=== PATIENT | female | born 1990 | race Caucasian/White ===

== ENCOUNTER 2016-08-21 11:41 | Inpatient (IN) | payer OTHER ==
[2016-08-21] MEDS ORDERED: SUBLIMAZE 100 MCG/2 ML IV PRN (12:09)
[2016-08-21] MEDS ORDERED: Zofran 4 MG/2 ML VIAL IV PRN (12:10)
[2016-08-21] MEDS ORDERED: Sodium Chloride 0.9% 1000 ML 1,000 ML IV SCH (12:15)
[2016-08-21] MEDS: Sodium Chloride 0.9% 1000 ML 1,000 ML IV SCH ×2 (13:26→21:53)
[2016-08-21 16:33] LABS: ALBUMIN 3.1 g/dL (3.4-5.0); ALKALINE PHOSPHATASE 113 U/L (46-116); BILIRUBIN,TOTAL 0.2 mg/dL (0.2-1.0); BLOOD UREA NITROGEN 11 mg/dL (9-20); Glucose 97 MG/DL (70-110)
[2016-08-21 16:53] LABS: ANION GAP 11.5 MEQ/L (5-15); CHLORIDE 108 mEq/L (98-107); Carbon Dioxide 26.4 mEq/L (21-32); Potassium 4.1 mEq/L (3.5-5.1); SGPT/ALT 320 U/L (12-78); SODIUM 142 mEq/L (136-145)
[2016-08-21 19:43] LABS: SGOT/AST 1307 U/L (15-37)
[2016-08-21] MEDS: Protonix 40MG Tablet PO SCH (21:53)
[2016-08-21] MEDS ORDERED: NON-FORMULARY ITEM (Omeprazole [Prilosec] 20 MG) PO SCH (22:00)
[2016-08-22] MEDS: Sodium Chloride 0.9% 1000 ML 1,000 ML IV SCH ×4 (04:24→23:58)
[2016-08-22 05:52] LABS: BASOPHIL % 0.4 % (0.0-0.4); Eosinophil % 10.6 % (0.00-5.0); Granulocytes % 50.8 % (36.0-66.0); Lymphocytes % 30.9 % (24.0-44.0); Mean Cell Volume 83.1 fl (78-100); Monocytes % 7.3 % (0.0-12.0); Platelet Count 247 K/mm3 (150-450); Red Blood Count 4.03 M/mm3 (4.1-5.4); Red Cell Distribution Width 14.9 % (11.5-14.0); White Blood Count 7.2 K/mm3 (4.0-10.5)
[2016-08-22 06:19] LABS: ALKALINE PHOSPHATASE 112 U/L (46-116); BILIRUBIN,TOTAL 0.3 mg/dL (0.2-1.0); BLOOD UREA NITROGEN 9 mg/dL (9-20); CHLORIDE 107 mEq/L (98-107); Carbon Dioxide 25.8 mEq/L (21-32); Glucose 89 MG/DL (70-110); Potassium 4.2 mEq/L (3.5-5.1); SGPT/ALT 355 U/L (12-78); SODIUM 140 mEq/L (136-145); Total Protein 6.1 gm/dL (6.4-8.2)
[2016-08-22 06:39] LABS: SGOT/AST 1266 U/L (15-37)
--- NOTE | 2016-08-22 07:04 | PCM.HP ---
History of Present Illness - Chief Complaint Chief Complaint: rhabolomyolysis History of Present Illness: is a 25 year old female who did a vigorous hour long spinning class on Friday (4 days ago), yesterday presented to [facility] [place] with brown urine, severe muscle pain in marcelino leg. her cpk was over 40,000 so she was admitted for hydration. her urine has cleared since admission, she is able to ambulate, otherwise she is doing well. - Review of Systems Constitutional: No Fever, No Chills Respiratory: No Cough, No Short Of Breath Cardiac: No Chest Pain, No Edema, No Syncope Abdominal/Gastrointestinal: No Abdominal Pain, No Nausea, No Vomiting, No Diarrhea Musculoskeletal: Myalgias All Other Systems: Reviewed and Negative Medications & Allergies Home Medications: Home Medication List Naproxen 375 mg [Naprosyn 375 mg] 375 mg PO Q6H PRN PRN 08/21/16 [History Confirmed 08/21/16] Omeprazole [Prilosec] 20 mg PO HS 08/21/16 [History Confirmed 08/21/16] Pnv No.122/Iron/Folic Acid [ Multi Tablet] 1 each PO DAILY 08/21/16 [ History Confirmed 08/21/16] Allergies/Adverse Reactions: Allergies Allergy/AdvReac Type Severity Reaction Status Date / Time No Known Drug Allergies Allergy Unverified 08/21/16 12:08 - Past Medical History Past Medical History: No Neurological History: No Pertinent History ENT History: No Pertinent History Cardiac History: Other Respiratory History: No Pertinent History Endocrine Medical History: No Pertinent History Musculoskelatal History: No Pertinent History GI Medical History: No Pertinent History Pyscho-Social History: No Pertinent History Reproductive Disorders: No Pertinent History Comment: cardio neurogenic - Female History Hx Last Menstrual Period: july 2016 Are you now?: No - Past Surgical History Past Surgical History: Yes Neuro Surgical History: No Pertinent History Cardiac History: No Pertinent History Respiratory Surgery: No Pertinent History GI Surgical History: No Pertinent History Genitourinary Surgical Hx: No Pertinent History Musculskeletal Surgical Hx: Orthopedic Surgery Female Surgical History: No Pertinent History Other Surgical History: L knee and toe on R ft. - Social History Smoking Status: Never smoker Exposure to second hand smoke: No Alcohol: None Drug Use: none - Physical Exam Vital Signs: Vital Signs - 24 hr Temp Pulse Resp BP Pulse Ox 08/22/16 04:00 98.1 F 82 15 103/55 97 08/22/16 00:00 97.9 F 83 16 99/57 97 08/21/16 20:00 97.8 F 92 H 17 100/61 98 08/21/16 16:00 98.1 F 92 H 20 106/69 96 08/21/16 12:30 97.8 F 76 20 118/68 96 General Appearance: no apparent distress, alert Eye Exam: PERRL/EOMI, eyes nml inspection Respiratory Exam: normal breath sounds, lungs clear, No respiratory distress Cardiovascular Exam: regular rate/rhythm, normal heart sounds, normal peripheral pulses Gastrointestinal/Abdomen Exam: soft, normal bowel sounds, No tenderness, No mass Extremity Exam: normal inspection, normal range of motion, pelvis stable Results - Labs Lab/Micro Results: Lab Results-Last 24 Hours 08/21/16 08/22/16 08/22/16 Range/Units 16:00 05:12 05:12 WBC 7.2 (4.0-10.5) K/mm3 RBC 4.03 L (4.1-5.4) M/mm3 Hgb 10.5 L (12.0-16.0) gm/dl Hct 33.5 L (35-47) % MCV 83.1 (78-100) fl MCH 26.0 (26-32) pg MCHC 31.3 L (32-36) g/dl RDW 14.9 H (11.5-14.0) % Plt Count 247 (150-450) K/mm3 MPV 10.0 H (6-9.5) fl Gran % 50.8 (36.0-66.0) % Lymphocytes % 30.9 (24.0-44.0) % Monocytes % 7.3 (0.0-12.0) % Eosinophils % 10.6 H (0.00-5.0) % Basophils % 0.4 (0.0-0.4) % Basophils # 0.03 (0-0.4) Sodium 142 140 (136-145) mEq/L Potassium 4.1 4.2 (3.5-5.1) mEq/L Chloride 108 H 107 (98-107) mEq/L Carbon Dioxide 26.4 25.8 (21-32) mEq/L Anion Gap 11.5 11.0 (5-15) MEQ/L BUN 11 9 (9-20) mg/dL Creatinine 0.74 0.68 (0.55-1.30) mg/dl Estimated GFR > 60 > 60 ML/MIN Glucose 97 89 (70-110) MG/DL Calcium 8.1 L 8.7 (8.5-10.1) mg/dL Total Bilirubin 0.2 0.3 (0.2-1.0) mg/dL AST 1307 H 1266 H (15-37) U/L ALT 320 H 355 H (12-78) U/L Alkaline Phosphatase 113 112 (46-116) U/L Creatine Kinase 96328 H 29104 H (26-192) U/L Serum Total Protein 6.0 L 6.1 L (6.4-8.2) gm/dL Albumin 3.1 L 3.0 L (3.4-5.0) g/dL Assessment/Plan (1) Rhabdomyolysis Current Visit: Yes Status: Acute Assessment & Plan: continue IV fluids, monitor lfts and renal function Code(s): M62.82 - RHABDOMYOLYSIS
[2016-08-22] MEDS: TYLENOL 325 MG PO PRN ×2 (08:59→23:25)
[2016-08-22] MEDS: Protonix 40MG Tablet PO SCH (21:53)
[2016-08-23 05:45] LABS: BASOPHIL % 0.3 % (0.0-0.4); Eosinophil % 11.8 % (0.00-5.0); Granulocytes % 50.1 % (36.0-66.0); Lymphocytes % 31.6 % (24.0-44.0); Mean Cell Volume 83.7 fl (78-100); Mean Corpuscular Hemoglobin 26.1 pg (26-32); Mean Platelet Volume 9.8 fl (6-9.5); Monocytes % 6.2 % (0.0-12.0); Platelet Count 231 K/mm3 (150-450); Red Blood Count 3.75 M/mm3 (4.1-5.4); Red Cell Distribution Width 14.9 % (11.5-14.0); White Blood Count 7.6 K/mm3 (4.0-10.5)
[2016-08-23 06:36] LABS: ALBUMIN 2.8 g/dL (3.4-5.0); ALKALINE PHOSPHATASE 110 U/L (46-116); ANION GAP 7.1 MEQ/L (5-15); BILIRUBIN,TOTAL 0.2 mg/dL (0.2-1.0); BLOOD UREA NITROGEN 12 mg/dL (9-20); CHLORIDE 109 mEq/L (98-107); Carbon Dioxide 29.4 mEq/L (21-32); Glucose 89 MG/DL (70-110); Potassium 4.2 mEq/L (3.5-5.1); SGPT/ALT 398 U/L (12-78); SODIUM 141 mEq/L (136-145); Total Protein 5.7 gm/dL (6.4-8.2)
[2016-08-23 07:07] LABS: SGOT/AST 1284 U/L (15-37)
[2016-08-23 08:05] VITALS: BP 112/61; PULSE 86; O2SAT 98
--- NOTE | 2016-08-23 08:44 | PCM.DCORD ---
- Discharge Discharge Date: 08/23/16 Disposition: Home, Self-Care Condition: Stable Medications: Home Medications Naproxen 375 mg [Naprosyn 375 mg] 375 mg PO Q6H PRN PRN 08/21/16 [ Confirmed 08/21/16] Omeprazole [Prilosec] 20 mg PO HS 08/21/16 [Confirmed 08/21/16] Pnv No.122/Iron/Folic Acid [ Multi Tablet] 1 each PO DAILY 08/21/16 [ Confirmed 08/21/16] Active Inpatient Medications Acetaminophen (Tylenol 325 Mg) 650 mg PO Q4H PRN PRN PRN Reason: PAIN AND/OR FEVER Stop: 09/21/16 08:35 Last Admin: 08/22/16 23:25 Dose: 650 mg Fentanyl Citrate (Sublimaze 100 Mcg/2 Ml) 50 mcg IV Q4H PRN PRN PRN Reason: PAIN Stop: 08/26/16 12:08 Sodium Chloride (Sodium Chloride 0.9% 1000 Ml) 1,000 mls @ 150 mls/hr IV .Q6H40M [facility] Stop: 09/20/16 12:59 Last Admin: 08/22/16 23:58 Dose: 150 mls/hr Ondansetron HCl (Zofran 4 Mg/2 Ml Vial) 4 mg IV Q4H PRN PRN Stop: 09/20/16 12:09 Pantoprazole Sodium (Protonix 40mg Tablet) 40 mg PO HS [facility] Stop: 09/20/16 21:59 Last Admin: 08/22/16 21:53 Dose: 40 mg Follow up with: SHANTHI APPIAH [Primary Care Provider] - 08/26/16 10:15 am
--- NOTE | 2016-08-27 10:06 | SSS ---
DISCHARGE DIAGNOSIS: 1. RHABDOMYOLYSIS. 2. KNEE EFFUSION. HISTORY OF PRESENT ILLNESS: Patient is a 25 y/o WF who presented to the Emergency Room. She apparently had participated in a spinning class, was vigorous with the exercise, and began having problems with blood in her urine which got her attention and caused her to come to the Emergency Room for evaluation and management. PAST MEDICAL HISTORY: Significant for fairly recently childbirth. HOME MEDICATIONS: She is on no medications at home. ALLERGIES: HAS NKDA. PHYSICAL EXAMINATION: Reveals a well-nourished, well-developed, 25 y/o WF in no obvious distress. Most recent vital signs show her temperature to be 97.5, pulse 96, respiratory rate 16, BP 97/61, O2 saturation 97% on room air. HEENT: Normocephalic and atraumatic. Pupils equal, round, and reactive to light. Extraocular movements intact. Oropharynx was pink and moist. NECK: Supple without lymphadenopathy, thyromegaly, or JVD. CHEST: Clear to auscultation with good air movement bilaterally. HEART: Regular rate and rhythm without murmurs, rubs, or gallops. ABDOMEN: Soft, nontender, nondistended without hepatosplenomegaly or masses. EXTREMITIES: Without clubbing, cyanosis, or edema. There is however 4+ effusion of the left knee. NEURO: The patient is A&O X 3. No focal deficits are noted. LABORATORY DATA: Reveals an initial CBC showing a WBC of 8700, Hgb 11.9, and platelet count 285,000. She had a metabolic panel showing a glucose of 79, BUN 12, and creatinine 0.78. Her electrolytes were normal. She did have significant elevation in her SGOT at 1347. SGPT was 337. Alk. phos. 128. CPK was noted to be 46,574. HOSPITAL COURSE: The patient was admitted to the [facility] and begun on IV fluid hydration to flush the kidneys to keep her from having kidney failure from the protein going through her system from the rhabdomyolysis. The patient was placed at rest otherwise. She did well with this having a good appetite and good spirits and really having no significant muscle pain. The patient did have other evaluations of a CT scan of abdomen and pelvis which showed mild fecal stasis without obstruction and otherwise was essentially normal. Patient was felt to be ready for discharge home by 08/23/16 as she was in her normal state of health at this point. We will continue to follow her CPK and liver enzymes as an outpatient. She is instructed to push fluids. She is asked to use ice on the knee for the effusion and follow-up in the office this coming week for further evaluations. The patient may require evaluation by [facility] as we have no other health care in the hospital for specialty consultation. She is instructed to call the office or to call me if she has any further problems in the interim.
== END 2016-08-23 09:20 | disposition home or self-care (01) | DRG 558 ==
LOC: MED SURG 11:59
PROVIDERS: ADMIT Family Medicine; ATTEND Family Medicine
DX: M62.82 Rhabdomyolysis (principal); M25.462 Effusion, left knee
CPT/HCPCS: 36415; 80053; 82550; 85025